=== PATIENT | male | born 1945 | race Hispanic/Latino ===

== ENCOUNTER 2017-08-30 10:51 | Day surgery (SDC) | payer MEDICARE, BC ==
[2017-08-25 10:59] VITALS: BMI 34.0
[2017-08-30] MEDS ORDERED: Lidocaine 2% Inj (20ml) ONE (12:49)
[2017-08-30] MEDS ORDERED: Iohexol 240 (50 ml) ONE (12:49)
[2017-08-30] MEDS ORDERED: Propofol 10 mg/ml Inj (20 ML) ONE (12:49)
[2017-08-30] MEDS ORDERED: cefTRIAXone (Rocephin) 1 gm Inj ONE (12:49)
[2017-08-30] MEDS ORDERED: Midazolam 2 MG/2 ML VIAL ONE (12:59)
[2017-08-30] MEDS ORDERED: HYDROmorphone 0.5 mg/0.5 ml ISec IVP PRN (14:07)
[2017-08-30] MEDS ORDERED: Lactated Ringer's 1,000 ML IV SCH (14:15)
[2017-08-30 15:52] VITALS: RESP 18; TEMP 97.8
[2017-08-30 15:59] VITALS: BP 138/81; PULSE 73; O2SAT 94
--- NOTE | 2017-08-30 16:21 | RAD ---
PROCEDURE: Fluoroscopy up to 1 hour HISTORY: ATTEMPTED STENT INSERTION (RIGHT) COMPARISON: TECHNIQUE: Fluoroscopy was provided in the operating room. 58 seconds of fluoro time. Four images were submitted FINDINGS: There is attempted wire insertion in the right distal ureter which was unsuccessful. There is no contrast opacification of the ureter IMPRESSION: As above
--- NOTE | 2017-08-31 08:10 | OP ---
PROCEDURE DATE: 08/30/2017 PREOPERATIVE DIAGNOSIS: Extensive distal right ureteral calculi with hydronephrosis and loss of renal parenchyma. POSTOPERATIVE DIAGNOSIS: Extensive distal right ureteral calculi with hydronephrosis and loss of renal parenchyma. PROCEDURE: Cystoscopy attempted insertion of a pigtail stent. SURGEON: Dr. Hernandez. TYPE OF ANESTHESIA: LMA. DESCRIPTION OF OPERATION: After adequate LMA anesthesia was given. The patient was placed in lithotomy, prepped and draped in usual manner. A 22-Sami cystourethroscope was introduced under direct vision. The anterior urethra is normal. Prostatic urethra showed bilobar occlusion. The bladder showed no tumors, foreign bodies or stones. Orifice is normal in appearance and location. There is no reflux from the right. Clear reflux on the left. I took an open ended catheter and tried to pass upon 0.035 Glidewire, it would just go up to the distal most portion of the collection of stones, which extended well over 2 to 3 cm, but not go beyond it. I then tried an angled Glidewire that did not go. I then tried injecting Xylocaine jelly that was diluted up the ureteral catheter to try to see if this would help. This was also unsuccessful. I then switched to a Berenstein catheter that was angled at the tip and tried again a Glidewire and would only go up to the stone nothing would go beyond it. I realize I would not be able to get anything alongside the stones at this point. I stopped my effort. Urine was initially collected for C and S upon introduction of the cystoscope. The bladder was drained. The cystoscope was removed. The patient was awakened and brought to the recovery room in good condition. Maximo Hernandez MD
== END 2017-08-30 16:15 | disposition home or self-care (01) ==
LOC: SDS 10:51
PROVIDERS: ATTEND Urology
DX: N13.2 Hydronephrosis with renal and ureteral calculous obstruction (principal); I10 Essential (primary) hypertension; E11.9 Type 2 diabetes mellitus without complications; G40.909 Epilepsy, unspecified, not intractable, without status epilepticus; Z90.49 Acquired absence of other specified parts of digestive tract
CPT/HCPCS: 52000; 87086; J1170; J2250; J2704; J3010; J7120; Q9966